=== PATIENT | male | born 1940 | race Hispanic/Latino ===

== ENCOUNTER 2016-09-19 17:45 | Emergency (ER) | payer MEDICARE, OTHER ==
[2016-09-19 18:04] VITALS: RESP 16; TEMP 99.1; BMI 32.4
--- NOTE | 2016-09-19 18:19 | ED PDOC ---
Arrival/HPI - General Chief Complaint: Male Genitourinary Time Seen by Provider: 09/19/16 17:49 Historian: Patient - History of Present Illness Narrative History of Present Illness (Text): 09/19/16 18:16 Patient is a 75 yo male with past medical hx of CAD presents to ED complaining of no drainage from his indewlling denny catheter for the past 10 hours. He reports some lower abdominal/suprapubic discomfort currently. States he has had indwelling catheter for the past "two and a half weeks". Denies fevers or chills. Denies back pain. Denies nausea or vomiting. Denies chest pain or shortness of breath. Time/Duration: Prior to Arrival Symptom Onset: Gradual Past Medical History - Infectious Disease Hx of Infectious Diseases: None - Cardiac Hx Cardiac Disorders: Yes (NSTEMI,ANGIOPLASTY POST CARD CATH WITH 2 STENTS ) Hx Hypertension: Yes Hx Pacemaker: No - Pulmonary Hx Respiratory Disorders: Yes (SMOKED 2 PPD QUIT 30 YRS AGO) - Neurological Hx Neurological Disorder: No - HEENT Hx HEENT Disorder: Yes Hx Glaucoma: Yes - Renal Hx Renal Disorder: No - Endocrine/Metabolic Hx Diabetes Mellitus Type 2: Yes - Hematological/Oncological Hx Blood Disorders: No - Integumentary Hx Dermatological Disorder: No - Musculoskeletal/Rheumatological Hx Musculoskeletal Disorders: Yes Hx Falls: No Hx Unsteady Gait: Yes (CANE WALKER) - Gastrointestinal Hx Gastrointestinal Disorders: Yes Hx Gall Bladder Disease: Yes (CHOLELITHIASIS-CHOLECYSTITIS -CHOLECYSTECTOMY WITH LYSIS OF ADHESIONS-[id number]) - Genitourinary/Gynecological Hx Genitourinary Disorders: Yes Hx Prostate Problems: Yes (BPH) - Psychiatric Hx Emotional Abuse: No Hx Physical Abuse: No Hx Substance Use: No - Surgical History Hx Cholecystectomy: Yes (OPEN WITH LYSIS OF ADHESIONS) Other/Comment: CARDIAC CATH WITH 2 STENTS,INGUINAL HERNIA REPAIR - Anesthesia Hx Anesthesia: Yes Hx Anesthesia Reactions: No Hx Malignant Hyperthermia: No - Suicidal Assessment Feels Threatened In Home Enviroment: No Family/Social History Family/Social History: Unknown Family HX Smoking Status: Former Smoker Hx Alcohol Use: Yes (QUIT 30 YRS AGO) Hx Substance Use: No Allergies/Home Meds Allergies/Adverse Reactions: Allergies IV TAPE Allergy (Intermediate, Uncoded 07/27/16 16:59) RASH Home Medications: Home Meds Medication Instructions Recorded Confirmed Timolol 0.5% Ophth [Timoptic 0.5% 1 drop EACHEYE DAILY 04/17/12 09/19/16 Ophth Soln] Alprazolam [Xanax] 0.25 mg PO PRN PRN 07/23/16 09/19/16 Glimepiride 4 mg PO DAILY 07/23/16 09/19/16 Insulin Lispro Mix 75/25 [HumaLOG 20 units SC ACBD 07/23/16 09/19/16 Mix 75/25] Tamsulosin [Flomax] 0.4 mg PO DAILY 07/23/16 09/19/16 Cholecalciferol (Vitamin D3) 2,000 unit PO DAILY 09/19/16 09/19/16 [Vitamin D3] Review of Systems - Review of Systems Constitutional: absent: Fevers Respiratory: absent: SOB Cardiovascular: absent: Chest Pain Gastrointestinal: Abdominal Pain. absent: Diarrhea, Nausea, Vomiting, Appetite Changes, Hematochezia Genitourinary Male: Urinary Output Changes. absent: Dysuria, Frequency, Hematuria Musculoskeletal: absent: Back Pain, Neck Pain Skin: absent: Rash Neurological: absent: Headache, Dizziness, Focal Weakness Physical Exam Vital Signs Reviewed: Yes Vital Signs Temp Pulse Resp BP Pulse Ox 09/19/16 18:03 99.1 F 94 H 16 147/69 95 Temperature: Afebrile Appearance: Positive for: Uncomfortable Pain Distress: Mild - Systems Exam Head: Present: Atraumatic Mouth: Present: Moist Mucous Membranes Neck: Present: Normal Range of Motion Respiratory/Chest: No: Respiratory Distress Cardiovascular: Present: Regular Rate and Rhythm Abdomen: Present: Tenderness, Distention. No: Peritoneal Signs Genitourinary Male: No: Penile Discharge, Testicle Tenderness Neurological: Present: Motor Func Grossly Intact, Normal Sensory Function Skin: Present: Warm Psychiatric: Present: Alert Medical Decision Making ED Course and Treatment: 09/19/16 20:09 Patient denies chest pain or shortness of breath. States no drainage and reports very MILD lower abdominal pressure. Denies flank pain or fevers or chills. Denny catheter changed without difficulty, one liter of cloudy urine observed. Patient observed in ED for 2 hours no hypotension, no chest pain or sob. Re-exam , no abdominal distension or discomfort. Patient will be placed on leg denny bag, NO TAPE. I discussed case with Dr. Mirian Puente who will follow-up with patient. Patient with recent urine culture in July which was positive. This was reviewed with Dr. Puente he was reportedly treated with antibiotics at that time. Given cloudy appearance of current urine, will discharge with antibiotics. - Lab Interpretations Lab Results: 09/19/16 18:35 09/19/16 18:35 Lab Results 09/19/16 18:35: WBC 6.7, RBC 3.86, Hgb 11.2 L, Hct 34.5 L, MCV 89.4, MCH 29.0, MCHC 32.5, RDW 14.0, Plt Count 185, MPV 10.6, Gran % 66.8, Lymph % (Auto) 20.6 L , [place] % (Auto) 7.9 H, Eos % (Auto) 4.3, Baso % (Auto) 0.4, Gran # 4.46, Lymph # 1.4, [place] # 0.5, Eos # 0.3, Baso # 0.03, Sodium 141, Potassium 4.0, Chloride 106, Carbon Dioxide 25, Anion Gap 14, BUN 19, Creatinine 1.2, Est GFR ( Amer) > 60, Est GFR (Non-Af Amer) 59, Random Glucose 145 H, Calcium 9.1, Total Bilirubin 0.5, AST 22, ALT 31, Alkaline Phosphatase 63, Total Protein 7.2, Albumin 3.7, Globulin 3.5, Albumin/Globulin Ratio 1.1, Urine Color Yellow, Urine Appearance Turbid, Urine pH 7.5, Ur Specific [place] 1.025, Urine Protein >=300 H, Urine Glucose (UA) Negative, Urine Ketones Negative, Urine Blood Moderate H, Urine Nitrate Positive H, Urine Bilirubin Negative, Urine Urobilinogen 0.2, Ur Leukocyte Esterase Moderate H, Urine RBC 2 - 5, Urine WBC Tntc, Ur Epithelial Cells 0 - 2, Urine Bacteria Many Disposition/Present on Arrival - Present on Arrival Any Indicators Present on Arrival: Yes History of DVT/PE: No History of Uncontrolled Diabetes: No Urinary Catheter: Yes History of Decub. Ulcer: No History Surgical Site Infection Following: None - Disposition Have Diagnosis and Disposition been Completed?: Yes Diagnosis: Urinary retention Disposition: HOME/ ROUTINE Disposition Time: 19:30 Patient Plan: Discharge Patient Problems: Current Active Problems Problem Status Diagnosed Acute cholecystitis Acute NSTEMI (non-ST elevated myocardial infarction) Acute Abdominal pain Acute Cholelithiasis Acute Condition: GOOD Discharge Instructions (ExitCare): Urinary Retention in Men (ED), Urinary Tract Infection in Men (ED) Additional Instructions: Follow-up with Dr. Puente as directed. Take antibiotics as directed. For any abdominal pain, any lack of urine flow, any back pain, any chills or shaking, any fevers, any nausea or vomiting, any chest pain or shortness of breath, get rechecked. Prescriptions: Cephalexin [cephalexin] 500 mg PO BID #14 cap
[2016-09-19 18:46] LABS: ADD MANUAL DIFF? NO
[2016-09-19 18:50] LABS: BASO # 0.03 K/mm3 (0.0-2.0); BASO % 0.4 % (0.0-3.0); EOS # 0.3 (0.0-0.7); EOS % 4.3 % (1.5-5.0); GRAN # 4.46 (1.4-6.5); GRAN % 66.8 % (50.0-68.0); HEMATOCRIT 34.5 % (42.0-52.0); LYMPH # 1.4 (1.2-3.4); LYMPH % 20.6 % (22.0-35.0); MEAN CELL VOLUME 89.4 fL (80.0-105.0); MEAN CORPUSCULAR HGB CONC 32.5 g/dl (31.0-37.0); MEAN PLATELET VOLUME 10.6 fl (7.0-11.0); MONO # 0.5 (0.1-0.6); MONO % 7.9 % (1.0-6.0); PLATELET COUNT 185 10^3/uL (120.0-450.0); WHITE BLOOD COUNT 6.7 10^3/ul (4.5-11.0)
[2016-09-19 18:51] LABS: PH,URINE 7.5 (4.7-8.0); URINE BILIRUBIN NEGATIVE (NEGATIVE); URINE BLOOD MODERATE (NEGATIVE); URINE GLUCOSE (UA) NEGATIVE (NEGATIVE); URINE KETONE NEGATIVE (NEGATIVE); URINE LEUKOCYTE ESTERASE MODERATE Leu/uL (NEGATIVE); URINE PROTEIN >=300 mg/dL (<30 mg/dL); URINE UROBILINOGEN 0.2 E.U./dL (<1 E.U./dL)
[2016-09-19 18:54] LABS: URINE APPEARANCE TURBID (CLEAR); URINE COLOR YELLOW (YELLOW)
[2016-09-19 19:03] LABS: ALB/GLOB RATIO 1.1 (1.1-1.8); ALKALINE PHOSPHATASE 63 U/L (38-133); ALT/SGPT 31 U/L (7-56); AST/SGOT 22 U/L (15-59); BILIRUBIN,TOTAL 0.5 mg/dL (0.2-1.3); BLOOD UREA NITROGEN 19 mg/dL (7-21); CALCIUM 9.1 mg/dL (8.4-10.5); CARBON DIOXIDE 25 mmol/L (21-33); CHLORIDE 106 mmol/L (98-107); GFR AFRICAN-AMERICAN > 60; GLUCOSE,RANDOM 145 mg/dL (70-110); SODIUM 141 mmol/L (132-148); TOTAL PROTEIN 7.2 g/dL (5.8-8.3)
[2016-09-19 19:06] LABS: URINE BACTERIA MANY (NEG); URINE EPITHELIAL CELLS 0 - 2 /hpf (0-5); URINE WBC TNTC /hpf (0-6)
[2016-09-19 20:44] VITALS: BP 139/76; PULSE 89; O2SAT 98
== END 2016-09-19 20:43 | disposition home or self-care (01) ==
LOC: ED 17:45
DX: R33.9 Retention of urine, unspecified (principal)

== ENCOUNTER 2016-11-18 12:10 | Day surgery (SDC) | payer MEDICARE ==
[2016-11-17 11:35] VITALS: BMI 35.4
[2016-11-18 13:20] VITALS: TEMP 97.5
[2016-11-18] MEDS ORDERED: Lidocaine 1% Inj (20ml) ONE (14:46)
[2016-11-18] MEDS ORDERED: Midazolam 2 MG/2 ML VIAL ONE (14:50)
[2016-11-18] MEDS ORDERED: Lidocaine 2% Inj (20ml) ONE (14:50)
[2016-11-18] MEDS ORDERED: Propofol 10 mg/ml Inj (20 ML) ONE (14:50)
[2016-11-18] MEDS ORDERED: Bupivacaine 0.5% Inj(30mL) ONE (15:22)
[2016-11-18] MEDS ORDERED: Iohexol 240 (50 ml) ONE ×2 (15:22→15:43)
[2016-11-18] MEDS ORDERED: Lidocaine 2% Jelly (Uro-Jet) ONE (15:25)
[2016-11-18] MEDS ORDERED: Ciprofloxacin 400mg/200ml D5W 400 MG/200 ML BAG IVPB ONE (15:28)
[2016-11-18] MEDS ORDERED: Lactated Ringer's 1,000 ML IV SCH (16:06)
[2016-11-18] MEDS ORDERED: HYDROmorphone 0.5 mg/0.5 ml ISec IVP PRN (16:06)
[2016-11-18 16:25] VITALS: O2SAT 97
[2016-11-18 16:54] VITALS: BP 129/76; PULSE 65; RESP 18
--- NOTE | 2016-11-18 23:38 | CARD ---
APPROVED REPORT EKG Measurement Heart [id number] MA [id number] <Conclusion> Sinus rhythm with 1st degree AV block Otherwise normal ECG
--- NOTE | 2016-11-20 13:43 | RAD ---
PROCEDURE: Fluoroscopy up to 1 hour HISTORY: CYSTOTOMY / WITH CYSTOGRAM (SUPRAPUBIC INSERTION) COMPARISON: TECHNIQUE: Fluoroscopy was provided in the operating room. 33 seconds of fluoroscopy time were utilized. Thirteen images were submitted FINDINGS: There is opacification of the bladder for purposes of suprapubic insertion. Procedure was performed by Dr. Jet Puente. IMPRESSION: As above
== END 2016-11-18 18:56 | disposition home or self-care (01) ==
LOC: SDS 12:10
PROVIDERS: ATTEND Urology
DX: N40.1 Benign prostatic hyperplasia with lower urinary tract symptoms (principal); R33.8 Other retention of urine; I10 Essential (primary) hypertension; E11.9 Type 2 diabetes mellitus without complications
CPT/HCPCS: 51102; 51600; 76000; 93005; J0744; J1170; J2250; J2704; J3010; J7120 ×2; Q9966

== ENCOUNTER 2016-12-22 06:16 | Day surgery (SDC) | payer MEDICARE ==
[2016-12-17 10:53] VITALS: BMI 32.8
[2016-12-22] MEDS ORDERED: Bupivacaine 0.5% Inj(30mL) ONE (07:33)
[2016-12-22] MEDS ORDERED: Midazolam 2 MG/2 ML VIAL ONE ×2 (08:45→08:57)
[2016-12-22] MEDS ORDERED: Iohexol 240 (50 ml) ONE (08:47)
[2016-12-22] MEDS ORDERED: Propofol 10 mg/ml Inj (20 ML) ONE (08:59)
[2016-12-22] MEDS ORDERED: cefTRIAXone (Rocephin) 1 gm Inj ONE (08:59)
[2016-12-22] MEDS ORDERED: Gentamicin 160 MG in Sodium Chloride 0.9% 100 ML IVPB STA (09:40)
[2016-12-22] MEDS ORDERED: Lactated Ringer's 1,000 ML IV SCH (09:46)
[2016-12-22] MEDS ORDERED: Gentamicin 80mg/50ml NS 160 MG/100 ML BAG IVPB ONE (09:54)
[2016-12-22] MEDS ORDERED: Gentamicin IV 80mg/50ml NS(PREMIX) IVPB ONE (10:00)
[2016-12-22 10:30] VITALS: O2SAT 98
[2016-12-22 10:51] VITALS: RESP 20; TEMP 97.4
[2016-12-22 11:40] VITALS: BP 150/72; PULSE 65
--- NOTE | 2016-12-22 14:50 | HP ---
DATE: 12/22/2016 REASON FOR ADMISSION: Insertion of cystostomy tube. HISTORY OF PRESENT ILLNESS: This is very pleasant 76-year-old gentleman who has recurrent episodes of urinary retention and voiding dysfunction. He reports that this all dates back to his gallbladder, but really historically has had longer history where he has had difficulty voiding and urinary retention, but he was sort of in usual state of health till he ran into this problem. Since then, we have tried multiple things and today he is coming in for a cystostomy tube insertion. PAST MEDICAL AND SURGICAL HISTORY: No history of an [place]. The patient of Dr. Arenas. REVIEW OF SYSTEMS: Listed above. Noncontributory. No weight loss or chest pain otherwise. SOCIAL HISTORY: Comes to the office mostly by himself and his daughter is around, but he mostly caring for himself at this point. MEDICATIONS: See chart. PHYSICAL EXAMINATION: GENERAL: A well-nourished male, in no apparent distress. VITAL SIGNS: Within normal limits as listed on the chart. ABDOMEN: Soft, nontender. GENITOURINARY: Cystostomy tube old site has healed well. Ricketts catheter is in place. DIAGNOSES: Urinary retention and voiding dysfunction. A very pleasant gentleman who we discussed options. At this point, the patient is very pleasant, but somewhat confused, so I explained to him what we are doing. I explained it at length before today, the idea of trying to doing another cystostomy tube. I explained the patient, we just leave the Ricketts catheter in that is also medically acceptable, but he is not happy with catheter in place. PLAN: The plan for urology is as follows. We are going to plan for a cystostomy tube insertion. we will do it under fluoroscopic imaging. I do want to mention in reviewing the notes, it was somewhat difficult because of his body habitus and again I explained the patient this is concerning to me, but we are going do our best. Jet Puente MD
--- NOTE | 2016-12-22 23:54 | OP ---
PROCEDURE DATE: 12/22/2016 PREOPERATIVE DIAGNOSES: Urinary retention, voiding dysfunction, hematuria, recurrent infection. POSTOPERATIVE DIAGNOSES: Urinary retention, voiding dysfunction, hematuria, recurrent infection. PROCEDURE: Insertion of a cystostomy tube, cystogram, insertion of Ricketts catheter. SURGEON: Jet Puente MD ESTIMATED BLOOD LOSS: Less than 20 mL. COMPLICATIONS: There were no complications, but we were unable to actually insert the catheter to leave it indwelling. See the operative report for further details. We did insert a cystostomy tube, but I did not feel that it was in place and draining well, so I subsequently removed it. See the entire body of the report for the procedure of insertion of the cystostomy tube and actually also insertion and removal, and there were no complications, just we were not able to get in. INDICATIONS: Brief history and physical were reviewed. Very pleasant gentleman with recurrent episodes of retention. He is not happy with the catheter. He is not able to void. He is not able to do intermittent catheterization. Therefore, it was somewhat limited, and I think cystostomy tubes are good answer and I think this is a reasonably good answer; however, not withstanding today's procedure, we were unable to get a catheter to stay in. See the addendum at the end because I just want to mention now, I did discuss with the patient about the possibility of insertion of an open cutdown cystostomy tube. DESCRIPTION OF PROCEDURE: After obtaining informed consent, the patient was brought to the OR and placed on the table. Routine monitor was placed, time-out was called, we kept the patient sedation. We provided local lidocaine. We brought the fluoro machine in. We distended the bladder through the indwelling Ricketts catheter. Now we used a finder needle. We used lidocaine jelly. I actually had my medication assistant pulling upon the patient on his pannus to try to distend the area, where I will be able to see his abdomen better. We went 2 cm above the pubic bone, but it was really difficult to feel the pubic bone because of his body habitus. However, I am pretty sure, I did feel it well enough to make use of skin marker very carefully. Remaining incision, we used Marcaine and made a little incision. I used a finder needle, went through that incision, a spinal needle and we got clear yellow urine. I now used a cystotomy tube and I just did not get any urine out. So now, I adjusted it under fluoroscopic imaging with both PA and lateral views to make sure that I am in properly. I used a needle from the spinal needle to make sure that I am at the right spot. I distended the bladder, I injected the contrast, so I am positive where the bladder is with the contrast injected. I even thought of the penis with little to keep the fluid inside without draining and leaking. I would have distended the bladder even more, but it started leaking back through the catheter. So once we did this, we did it. After the incision of the cystotomy tube, I put the Ricketts catheter through the plastic tubing and tried adjusting the tubing, may be taking out through the back wall of the bladder and pulling it back and using the films, and I took multiple images, saved some, but even afterwards when I am positive, positive that I am in, there is nothing draining and I know it is full because I could see it on the imaging and as soon as I left the Ricketts, unclamped the Ricketts catheter via the penis, the urine comes out easily and the bladder deflates, but I either way was not able to get an adequate return despite adjusting the catheter in its position, etc. So, after multiple times, I do not want to do anything further dangerous. So, the procedure is aborted. We inserted the Ricketts catheter via the urethra. I put actually [place], just in case if there is any perforation to the bladder. Again, just to make sure the bladder will heal well, but I am fairly sure that the bladder is not extravasated all over. I did a cystogram to confirm all this. There are some final pictures that are saved. The patient tolerated the procedure without complication, but I cannot get a cystostomy tube in well. The patient was brought to the recovery room in stable condition. ADDENDUM: I spoke to the patient about options about repeat cystostomy tube or about open cystostomy tube. Further plans will follow. Jet Puente MD
--- NOTE | 2016-12-23 09:55 | PN ---
POSTOP NOTE Postop, patient is doing well in recovery room, catheter is draining. Patient is feeling better. Plans are for discharge home. DIAGNOSIS: Urinary retention and voiding dysfunction. PLAN: Outpatient followup. discuss with you about the cystostomy tube. Jet Puente MD
== END 2016-12-22 12:40 | disposition home or self-care (01) ==
LOC: SDS 06:16
PROVIDERS: ATTEND Urology
DX: R33.9 Retention of urine, unspecified (principal); R39.198 Other difficulties with micturition; N02.9 Recurrent and persistent hematuria with unspecified morphologic changes
CPT/HCPCS: 51702; 74430; A4358; J0696; J1580 ×2; J2250; J2704; J3010; J7120 ×2; Q9966

== ENCOUNTER 2017-03-10 13:27 | Emergency (ER) | payer MEDICARE ==
[2017-03-10 13:27] VITALS: BMI 32.8
--- NOTE | 2017-03-10 14:43 | ED PDOC ---
Arrival/HPI - General Time Seen by Provider: 03/10/17 14:23 Historian: Patient - History of Present Illness Narrative History of Present Illness (Text): 03/10/17 14:31 A 76 year old male, whose past medical history includes CAD, hypertension, hyperlipidemia, diabetes type 2, and prostate problem, presents to the emergency department complaining of urine coming out through the sides of his denny. Patient reports he is having trouble urinating into bag and results in having urine go down his legs. He mentions having his denny catheter bag changed yesterday but is concerned that it was placed in wrong. Patient notes also experiencing dysuria, hematuria (1 hour ago), and some diarrhea, but denies of any fever, nausea, vomiting, abdominal pain, or any other complaints. PMD: Dr. Arenas Urologist: Dr. Puente Past Medical History - Provider Review Nursing Documentation Reviewed: Yes - Infectious Disease Hx of Infectious Diseases: None - Cardiac Hx Pacemaker: No - Pulmonary Hx Respiratory Disorders: Yes (SMOKED 2 PPD QUIT 30 YRS AGO) - Neurological Hx Paralysis: No - HEENT Hx HEENT Disorder: Yes Hx Glaucoma: Yes - Renal Hx Renal Disorder: No - Endocrine/Metabolic Hx Diabetes Mellitus Type 2: Yes - Hematological/Oncological Hx Blood Transfusions: No Hx Blood Transfusion Reaction: No - Integumentary Hx Dermatological Disorder: No - Musculoskeletal/Rheumatological Hx Musculoskeletal Disorders: Yes - Gastrointestinal Hx Gastrointestinal Disorders: Yes Hx Gall Bladder Disease: Yes (CHOLELITHIASIS-CHOLECYSTITIS -CHOLECYSTECTOMY WITH LYSIS OF [id number]) - Genitourinary/Gynecological Hx Genitourinary Disorders: Yes Hx Prostate Problems: Yes (BPH) - Psychiatric Hx Emotional Abuse: No Hx Physical Abuse: No Hx Substance Use: No - Surgical History Hx Cholecystectomy: Yes (OPEN WITH LYSIS OF ADHESIONS) Other/Comment: CARDIAC CATH WITH 2 STENTS,INGUINAL HERNIA REPAIR - Anesthesia Hx Anesthesia Reactions: No Hx Malignant Hyperthermia: No - Suicidal Assessment Feels Threatened In Home Enviroment: No Family/Social History - Physician Review Nursing Documentation Reviewed: Yes Family/Social History: No Known Family HX Smoking Status: Former Smoker Hx Alcohol Use: Yes (QUIT 30 YRS AGO) Hx Substance Use: No Allergies/Home Meds Allergies/Adverse Reactions: Allergies amoxicillin Allergy (Severe, Verified 11/17/16 11:36) RASH IV TAPE Allergy (Intermediate, Uncoded 07/27/16 16:59) RASH Home Medications: Home Meds Medication Instructions Recorded Confirmed Alprazolam [Xanax] 0.25 mg PO TID 07/23/16 03/10/17 Glimepiride 4 mg PO BID 07/23/16 03/10/17 Insulin Lispro Mix 75/25 [HumaLOG 20 units SC BID 07/23/16 03/10/17 Mix 75/25] Tamsulosin [Flomax] 0.4 mg PO DAILY 07/23/16 03/10/17 Cholecalciferol (Vitamin D3) 2,000 unit PO DAILY 09/19/16 03/10/17 [Vitamin D3] Review of Systems - Physician Review All systems were reviewed & negative as marked: Yes - Review of Systems Constitutional: absent: Fevers Gastrointestinal: Diarrhea (some diarrhea ). absent: Abdominal Pain, Nausea, Vomiting Genitourinary Male: Dysuria, Hematuria. absent: Frequency Physical Exam Vital Signs Reviewed: Yes Vital Signs Temp Pulse Resp BP Pulse Ox 03/10/17 16:00 72 16 149/90 98 03/10/17 13:40 97.3 F L 73 13 152/59 H 98 Temperature: Afebrile Blood Pressure: Normal Pulse: Regular Respiratory Rate: Normal Appearance: Positive for: Well-Appearing, Non-Toxic, Comfortable Pain Distress: None Mental Status: Positive for: Alert and Oriented X 3 - Systems Exam Head: Present: Atraumatic Pupils: Present: PERRL Extroacular Muscles: Present: EOMI Conjunctiva: Present: Normal Mouth: Present: Moist Mucous Membranes Respiratory/Chest: Present: Clear to Auscultation, Good Air Exchange. No: Respiratory Distress, Accessory Muscle Use Cardiovascular: Present: Regular Rate and Rhythm, Normal S1, S2. No: Murmurs Abdomen: No: Tenderness Genitourinary Male: Present: Normal External Genitalia. No: Penile Discharge, Testicle Tenderness, Penile Swelling, Masses, Erythema, Hernias, Testicle Swelling, Other (no bleeding from penis; denny bag has yellow urine with tinge of blood) Back: Present: Normal Inspection. No: CVA Tenderness Upper Extremity: Present: Normal Inspection. No: Cyanosis, Edema Lower Extremity: Present: Normal Inspection. No: Edema Neurological: Present: GCS=15, CN II-XII Intact, Speech Normal Skin: Present: Warm, Dry, Normal Color. No: Rashes Psychiatric: Present: Alert, Oriented x 3, Normal Insight, Normal Concentration Medical Decision Making ED Course and Treatment: 03/10/17 14:35 Impression: 76 year old male with loose stool. Physical exam shows no abdominal tenderness; no penile tenderness, no active bleeding, Differential Diagnosis included but are not limited to: Denny bag replacement Plan: -- UA -- Reassess and disposition Prior Visits: Notes and results from previous visits were reviewed. Patient was last seen here in the emergency department on 09/19/2016 for no drainage from his indwelling denny catheter. Patient was discharged home. Progress Notes: Patient's UA showed a UTI and will be treated with Cipro x 7 days. Patient also reported a piece of tissue that came out of his penis. He things maybe it was from his right inguinal hernia repair that the did years ago. He has no tenderness to that area or any open wounds. He will follow this up with his PMD and Urologist Dr. Puente. Dr. Puente called prior to arrival and stated to change his denny and if it is properly placed then he can follow up with him in his office. - Lab Interpretations Lab Results: Lab Results 03/10/17 15:00: Urine Color Yellow, Urine Appearance Cloudy, Urine pH 6.0, Ur Specific [place] >= 1.030, Urine Protein 100 H, Urine Glucose (UA) Negative, Urine Ketones Negative, Urine Blood Large H, Urine Nitrate Positive H, Urine Bilirubin Negative, Urine Urobilinogen 0.2, Ur Leukocyte Esterase Moderate H, Urine RBC 20 - 25, Urine WBC Tntc, Ur Epithelial Cells 3 - 4, Urine Bacteria Large - Medication Orders Current Medication Orders: Discontinued Medications Ciprofloxacin (Cipro) 500 mg PO ONCE STA PRN Reason: Protocol Stop: 03/10/17 15:44 Last Admin: 03/10/17 16:02 Dose: 500 mg - Scribe Statement The provider has reviewed the documentation as recorded by the Francoise Lux Provider Scribe Attestation: All medical record entries made by the Scribe were at my direction and personally dictated by me. I have reviewed the chart and agree that the record accurately reflects my personal performance of the history, physical exam, medical decision making, and the department course for this patient. I have also personally directed, reviewed, and agree with the discharge instructions and disposition. Disposition/Present on Arrival - Present on Arrival Any Indicators Present on Arrival: Yes History of DVT/PE: No History of Uncontrolled Diabetes: No Urinary Catheter: Yes History Surgical Site Infection Following: None - Disposition Have Diagnosis and Disposition been Completed?: Yes Diagnosis: UTI (urinary tract infection) Disposition: HOME/ ROUTINE Disposition Time: 16:15 Patient Plan: Discharge Condition: IMPROVED Discharge Instructions (ExitCare): Urinary Tract Infection in Men (ED) Additional Instructions: Mr. Younger, thank you for letting us take care of you today. Your provider was Dr. Winter. You were treated for UTI, Denny replacement. The emergency medical care you received today was directed at your acute symptoms. If you were prescribed any medication, please fill it and take as directed. It may take several days for your symptoms to resolve. Return to the Emergency Department if your symptoms worsen, do not improve, or if you have any other problems. Please contact your doctor or call one of the physicians/clinics you have been referred to that are listed on the Patient Visit Information form that is included in your discharge packet. Bring any paperwork you were given at discharge with you along with any medications you are taking to your follow up visit. Our treatment cannot replace ongoing medical care by a primary care provider (PCP) outside of the emergency department. Thank you for allowing the [facility] team to be part of your care today. If you had an X-Ray or CT scan: A Radiologist will review the ED reading if any change in treatment is needed we will contact you. If you had a blood, urine, or wound culture: It will take several days for the results, if any change in treatment is needed we will contact you. If you had an STI test: It will take 48 hours for the results. Please call after 1 week if you have not heard back. Prescriptions: Ciprofloxacin [Cipro] 500 mg PO Q12 #14 tab Referrals: Dustin Arenas MD [Primary Care Provider] - Follow up with primary Forms: CatchMe! (Sami)
[2017-03-10 14:46] VITALS: TEMP 97.3; O2SAT 98
[2017-03-10 15:26] LABS: URINE BILIRUBIN NEGATIVE (NEGATIVE); URINE BLOOD LARGE (NEGATIVE); URINE GLUCOSE (UA) NEGATIVE (NEGATIVE); URINE KETONE NEGATIVE (NEGATIVE); URINE LEUKOCYTE ESTERASE MODERATE Leu/uL (NEGATIVE); URINE PROTEIN 100 mg/dL (<30 mg/dL); URINE UROBILINOGEN 0.2 E.U./dL (<1 E.U./dL)
[2017-03-10 15:30] LABS: URINE APPEARANCE CLOUDY (CLEAR); URINE COLOR YELLOW (YELLOW)
[2017-03-10] MEDS ORDERED: Tmp-Smz 800 mg-160 mg DS Tab PO STA (15:40)
[2017-03-10 15:42] LABS: URINE RBC 20 - 25 /hpf (0-2); URINE WBC TNTC /hpf (0-6)
[2017-03-10 15:43] LABS: URINE BACTERIA LARGE (NEG)
[2017-03-10 16:14] VITALS: BP 149/90; PULSE 72; RESP 16
== END 2017-03-10 16:15 | disposition home or self-care (01) ==
LOC: ED 13:27
DX: N39.0 Urinary tract infection, site not specified (principal); I10 Essential (primary) hypertension; E11.9 Type 2 diabetes mellitus without complications; E78.5 Hyperlipidemia, unspecified; I25.10 Atherosclerotic heart disease of native coronary artery without angina pectoris; Z87.891 Personal history of nicotine dependence

== ENCOUNTER 2018-01-25 06:30 | Emergency (ER) | payer MEDICARE ==
[2018-01-25 06:31] VITALS: BMI 32.8
--- NOTE | 2018-01-25 07:33 | ED PDOC ---
Arrival/HPI - General Chief Complaint: Male Genitourinary Time Seen by Provider: 01/25/18 07:09 Historian: Patient, Family - History of Present Illness Narrative History of Present Illness (Text): 01/25/18 07:18 A 77 year old male, whose past medical history includes HTN, HLD, previous denny cath and cholecysectomy (few months ago), presents to the emergency department complaining of pain to tip of penis. Patient reports having denny catheter removed by Dr. Dudley yesterday. After removal, patient states he had difficulty urinated and patient decided to place back denny catheter back in himself approximately 2 hours ago, however as a result began to experience hematuria and pain at the tip of his penis. Patient denies any rash to penis, dysuria, stool changes, fever, chills, night sweats or any other complaints at this time. Denies any history of STDs or sexual activity in years. Urologist: Dr. Dudley 01/25/18 10:00 Past Medical History - Provider Review Nursing Documentation Reviewed: Yes - Infectious Disease Hx of Infectious Diseases: None - Cardiac Hx Pacemaker: No - Pulmonary Hx Respiratory Disorders: Yes (SMOKED 2 PPD QUIT 30 YRS AGO) - Neurological Hx Paralysis: No - HEENT Hx HEENT Disorder: Yes Hx Glaucoma: Yes - Renal Hx Renal Disorder: No - Endocrine/Metabolic Hx Endocrine Disorders: Yes Hx Diabetes Mellitus Type 2: Yes - Hematological/Oncological Hx Blood Transfusions: No Hx Blood Transfusion Reaction: No - Integumentary Hx Dermatological Disorder: No - Musculoskeletal/Rheumatological Hx Musculoskeletal Disorders: Yes - Gastrointestinal Hx Gastrointestinal Disorders: Yes Hx Gall Bladder Disease: Yes (CHOLELITHIASIS-CHOLECYSTITIS -CHOLECYSTECTOMY WITH LYSIS OF [id number]) - Genitourinary/Gynecological Hx Genitourinary Disorders: Yes Hx Prostate Problems: Yes (BPH) Other/Comment: chronic denny - Psychiatric Hx Emotional Abuse: No Hx Physical Abuse: No Hx Substance Use: No - Surgical History Hx Cholecystectomy: Yes (OPEN WITH LYSIS OF ADHESIONS) Other/Comment: CARDIAC CATH WITH 2 STENTS,INGUINAL HERNIA REPAIR - Anesthesia Hx Anesthesia Reactions: No Hx Malignant Hyperthermia: No - Suicidal Assessment Feels Threatened In Home Enviroment: No Family/Social History - Physician Review Nursing Documentation Reviewed: Yes Family/Social History: No Known Family HX Smoking Status: Former Smoker Hx Alcohol Use: Yes (QUIT 30 YRS AGO) Hx Substance Use: No Allergies/Home Meds Allergies/Adverse Reactions: Allergies amoxicillin Allergy (Severe, Verified 11/17/16 11:36) RASH IV TAPE Allergy (Intermediate, Uncoded 07/27/16 16:59) RASH Home Medications: Home Meds Medication Instructions Recorded Confirmed Finasteride [Proscar] 5 mg PO DAILY 01/25/18 01/25/18 Losartan [Cozaar] 50 mg PO DAILY 01/25/18 01/25/18 Meloxicam [Mobic] 7.5 mg PO DAILY 01/25/18 01/25/18 busPIRone [Buspar] 5 mg PO DAILY 01/25/18 01/25/18 Review of Systems - Review of Systems Constitutional: Normal Eyes: Normal ENT: Normal Respiratory: Normal Cardiovascular: Normal Gastrointestinal: absent: Abdominal Pain, Stool Changes Genitourinary Male: Other (states experiencing pain at tip of penis.). absent: Dysuria Musculoskeletal: Normal Skin: absent: Rash Endocrine: Polyuria Hemo/Lymphatic: Normal Psychiatric: Normal Physical Exam Vital Signs Reviewed: Yes Vital Signs Temp Pulse Resp BP Pulse Ox 01/25/18 06:39 97.6 F 81 18 156/95 H 96 Temperature: Afebrile Blood Pressure: Normal Pulse: Regular Respiratory Rate: Normal Appearance: Positive for: Well-Appearing, Non-Toxic, Comfortable Pain Distress: None Mental Status: Positive for: Alert and Oriented X 3 - Systems Exam Head: Present: Atraumatic, Normocephalic Pupils: Present: PERRL Extroacular Muscles: Present: EOMI Conjunctiva: Present: Normal Mouth: Present: Moist Mucous Membranes Neck: Present: Normal Range of Motion Respiratory/Chest: Present: Clear to Auscultation, Good Air Exchange. No: Respiratory Distress, Accessory Muscle Use Cardiovascular: Present: Regular Rate and Rhythm, Normal S1, S2. No: Murmurs Abdomen: No: Tenderness, Distention, Peritoneal Signs Genitourinary Male: Present: Normal External Genitalia. No: Circumcised Penis, Lesions, Penile Discharge, Testicle Tenderness, Penile Swelling, Masses, Erythema, Hernias, Testicle Swelling Back: Present: Normal Inspection. No: CVA Tenderness Upper Extremity: Present: Normal Inspection. No: Cyanosis, Edema Lower Extremity: Present: Normal Inspection. No: Edema Neurological: Present: GCS=15, CN II-XII Intact, Speech Normal Skin: Present: Warm, Dry, Normal Color. No: Rashes Psychiatric: Present: Alert, Oriented x 3, Normal Insight, Normal Concentration Medical Decision Making ED Course and Treatment: 01/25/18 07:20 Impression: 77 year old male with pain to tip of penis. No acute findings on physical exam; normal genitourinary examination. No hx of recent sex use, U/L sexually related. Pain likely secondary to attempted self denny insertion. Urine viewed by myself has no clots and is clear. Plan: -- Urinalysis -- Reassess and disposition Progress Notes: 01/25/18 07:43 Patient will have denny catheter placed since he states he is having difficulty urinating at this time. 01/25/18 09:52 Denny placed, draining jayjay urine well. Pt notes relief of pain Lab results show patient has a UTI. Will rx and d/c pt home. No back pain or fever. - Lab Interpretations Lab Results: Lab Results 01/25/18 07:37: Urine Color Yellow, Urine Appearance Clear, Urine pH 6.0, Ur Specific [place] 1.015, Urine Protein 30 H, Urine Glucose (UA) Negative, Urine Ketones Negative, Urine Blood Large H, Urine Nitrate Negative, Urine Bilirubin Negative, Urine Urobilinogen 0.2, Ur Leukocyte Esterase Large H, Urine RBC Tntc , Urine WBC Tntc, Ur Epithelial Cells 1 - 3, Amorphous Sediment Few, Urine Bacteria Many, Coarse Granular Casts Trace H, Urine Other Uyeast - Scribe Statement The provider has reviewed the documentation as recorded by the Francoise Lux Provider Scribe Attestation: All medical record entries made by the Fletcheribkan were at my direction and personally dictated by me. I have reviewed the chart and agree that the record accurately reflects my personal performance of the history, physical exam, medical decision making, and the department course for this patient. I have also personally directed, reviewed, and agree with the discharge instructions and disposition. Disposition/Present on Arrival - Present on Arrival Any Indicators Present on Arrival: No History of DVT/PE: No History of Uncontrolled Diabetes: No Urinary Catheter: Yes History of Decub. Ulcer: No History Surgical Site Infection Following: None - Disposition Have Diagnosis and Disposition been Completed?: Yes Diagnosis: UTI (urinary tract infection) Disposition: HOME/ ROUTINE Disposition Time: :30 Patient Problems: Current Active Problems Problem Status Onset UTI (urinary tract infection) Acute Condition: GOOD Discharge Instructions (ExitCare): Urinary Tract Infections in Adults, How to Care for Your Denny Catheter, Male Additional Instructions: JUDY ESPINO, thank you for letting us take care of you today. Your provider was Pilo Rajput and you were treated for medical clearance. The emergency medical care you received today was directed at your acute symptoms. If you were prescribed any medication, please fill it and take as directed. It may take several days for your symptoms to resolve. Return to the Emergency Department if your symptoms worsen, do not improve, or if you have any other problems. Please contact your doctor or call one of the physicians/clinics you have been referred to that are listed on the Patient Visit Information form that is included in your discharge packet. Bring any paperwork you were given at discharge with you along with any medications you are taking to your follow up visit. Our treatment cannot replace ongoing medical care by a primary care provider outside of the emergency department. Thank you for allowing the [facility] team to be part of your care today. If you had an X-Ray or CT scan: A Radiologist will review the ED reading if any change in treatment is needed we will contact you. If you had a blood, urine, or wound culture: It will take several days for the results, if any change in treatment is needed we will contact you. If you had an STI test: It will take 48 hours for the results. Please call after 1 week if you have not heard back. Prescriptions: Ciprofloxacin HCl [Cipro] 500 mg PO BID 10 Days #20 tablet Referrals: Dustin Underwood Jr., MD [Primary Care Provider] - Follow up with primary Wilfrido Dudley MD [Staff Provider] - Follow up with primary Forms: [employer] ([place])
[2018-01-25 08:53] LABS: URINE BILIRUBIN NEGATIVE (NEGATIVE); URINE BLOOD LARGE (NEGATIVE); URINE GLUCOSE (UA) NEGATIVE (NEGATIVE); URINE LEUKOCYTE ESTERASE LARGE Leu/uL (NEGATIVE); URINE PROTEIN 30 mg/dL (<30 mg/dL); URINE UROBILINOGEN 0.2 E.U./dL (<1 E.U./dL)
[2018-01-25 08:54] LABS: URINE APPEARANCE CLEAR (CLEAR); URINE COLOR YELLOW (YELLOW)
[2018-01-25 08:57] LABS: URINE AMORPHOUS SEDIMENT FEW; URINE BACTERIA MANY (NEG); URINE COARSE GRANULAR CAST TRACE /hpf (0-2); URINE RBC TNTC /hpf (0-2); URINE WBC TNTC /hpf (0-6)
[2018-01-25 10:08] VITALS: RESP 20
[2018-01-25 10:12] VITALS: BP 149/77; PULSE 73; TEMP 97.6; O2SAT 97
== END 2018-01-25 10:18 | disposition home or self-care (01) ==
LOC: ED 06:30
DX: N39.0 Urinary tract infection, site not specified (principal); I10 Essential (primary) hypertension; E78.5 Hyperlipidemia, unspecified; E11.9 Type 2 diabetes mellitus without complications; Z87.891 Personal history of nicotine dependence

== ENCOUNTER 2018-03-23 03:32 | Emergency (ER) | payer MEDICARE ==
[2018-03-23 03:32] VITALS: BMI 32.8
[2018-03-23 03:50] VITALS: RESP 18; TEMP 98.3
--- NOTE | 2018-03-23 04:10 | ED PDOC ---
Arrival/HPI - General Chief Complaint: Male Genitourinary Time Seen by Provider: 03/23/18 03:34 Historian: Patient - History of Present Illness Narrative History of Present Illness (Text): 03/23/18 04:06 Dex Younger is a 77 year old male, whose past medical history includes BPH, CAD, and hypertension, who presents to the Emergency department complaining of urinary retention. Patient states he has had a Denny catheter in place for approximately the last 1-2 months and had urinary retention tonight. Patient also reports burning sensation to the tip of his penis. Patient reports he has experienced similar symptoms in the past and was placed on antibiotics. Patient denies any fever, chills, chest pain, shortness of breath, nausea, vomiting, diarrhea, back pain, neck pain, headache, dizziness, or any other complaints. Symptom Onset: Gradual Symptom Course: Unchanged Activities at Onset: Light Context: Home Past Medical History - Provider Review Nursing Documentation Reviewed: Yes - Infectious Disease Hx of Infectious Diseases: None - Cardiac Hx Pacemaker: No - Pulmonary Hx Respiratory Disorders: Yes (SMOKED 2 PPD QUIT 30 YRS AGO) - Neurological Hx Paralysis: No - HEENT Hx HEENT Disorder: Yes Hx Glaucoma: Yes - Renal Hx Renal Disorder: No - Endocrine/Metabolic Hx Endocrine Disorders: Yes Hx Diabetes Mellitus Type 2: Yes - Hematological/Oncological Hx Blood Transfusions: No Hx Blood Transfusion Reaction: No - Integumentary Hx Dermatological Disorder: No - Musculoskeletal/Rheumatological Hx Musculoskeletal Disorders: Yes - Gastrointestinal Hx Gastrointestinal Disorders: Yes Hx Gall Bladder Disease: Yes (CHOLELITHIASIS-CHOLECYSTITIS -CHOLECYSTECTOMY WITH LYSIS OF [id number]) - Genitourinary/Gynecological Hx Genitourinary Disorders: Yes Hx Prostate Problems: Yes (BPH) Other/Comment: chronic denny - Psychiatric Hx Emotional Abuse: No Hx Physical Abuse: No Hx Substance Use: No - Surgical History Hx Cholecystectomy: Yes (OPEN WITH LYSIS OF ADHESIONS) Other/Comment: CARDIAC CATH WITH 2 STENTS,INGUINAL HERNIA REPAIR - Anesthesia Hx Anesthesia Reactions: No Hx Malignant Hyperthermia: No - Suicidal Assessment Feels Threatened In Home Enviroment: No Family/Social History - Physician Review Nursing Documentation Reviewed: Yes Family/Social History: Unknown Family HX Smoking Status: Former Smoker Hx Alcohol Use: Yes (QUIT 30 YRS AGO) Hx Substance Use: No Allergies/Home Meds Allergies/Adverse Reactions: Allergies amoxicillin Allergy (Severe, Verified 11/17/16 11:36) RASH IV TAPE Allergy (Intermediate, Uncoded 07/27/16 16:59) RASH Home Medications: Home Meds Medication Instructions Recorded Confirmed Finasteride [Proscar] 5 mg PO DAILY 01/25/18 03/23/18 Losartan [Cozaar] 50 mg PO DAILY 01/25/18 03/23/18 Meloxicam [Mobic] 7.5 mg PO DAILY 01/25/18 03/23/18 busPIRone [Buspar] 5 mg PO DAILY 01/25/18 03/23/18 Review of Systems - Physician Review All systems were reviewed & negative as marked: Yes - Review of Systems Constitutional: Normal. absent: Fevers Eyes: Normal ENT: Normal Respiratory: Normal. absent: SOB, Cough Cardiovascular: Normal Genitourinary Male: Other (+urinary retention) Musculoskeletal: Normal Skin: Normal Neurological: Normal Endocrine: Normal Hemo/Lymphatic: Normal Psychiatric: Normal Physical Exam Vital Signs Reviewed: Yes Vital Signs Temp Pulse Resp BP Pulse Ox 03/23/18 03:46 98.3 F 81 18 155/78 H 96 Temperature: Afebrile Blood Pressure: Normal Pulse: Regular Respiratory Rate: Normal Appearance: Positive for: Well-Appearing, Non-Toxic, Comfortable Pain Distress: None Mental Status: Positive for: Alert and Oriented X 3 - Systems Exam Head: Present: Atraumatic, Normocephalic Pupils: Present: PERRL Extroacular Muscles: Present: EOMI Conjunctiva: Present: Normal Mouth: Present: Moist Mucous Membranes Neck: Present: Normal Range of Motion Respiratory/Chest: Present: Clear to Auscultation, Good Air Exchange. No: Respiratory Distress, Accessory Muscle Use Cardiovascular: Present: Regular Rate and Rhythm, Normal S1, S2. No: Murmurs Abdomen: No: Tenderness, Distention, Peritoneal Signs Genitourinary Male: Present: Normal External Genitalia, Other (Denny catheter in place) Back: Present: Normal Inspection Upper Extremity: Present: Normal Inspection. No: Cyanosis, Edema Lower Extremity: Present: Normal Inspection. No: Edema Neurological: Present: GCS=15, CN II-XII Intact, Speech Normal Skin: Present: Warm, Dry, Normal Color. No: Rashes Psychiatric: Present: Alert, Oriented x 3, Normal Insight, Normal Concentration Medical Decision Making ED Course and Treatment: 03/23/18 04:06 Impression: 77 year old male complaining of urinary retention and burning to the tip of his penis. Plan: -- Denny catheter replacement -- Reassess and disposition Prior Visits: Notes and results from previous visits were reviewed. Progress Notes: PROCEDURE: Denny Catheter Replacement Performed by the emergency provider Consent: Informed consent, after discussion of the risks, benefits, and alternatives to the procedure was obtained. Timeout: A timeout to verify the correct patient, procedure, and site was performed. Indication: Urinary retention, denny malfunction Preparation: The area was prepped and draped in the usual sterile fashion. Technique: A 18 [place] coudette catheter was placed into the penis. Post-procedure: The patient tolerated the procedure well with no immediate complications 03/23/18 05:16 Denny draining blood-tinged urine. Pt is scheduled to see his urologist, Dr. Acuña, later today. Patient in agreement with plan to be discharged home. Patient is stable for discharge. Patient was instructed to follow up with physician or return if symptoms worsen or new concerning symptoms arise. - Scribe Statement The provider has reviewed the documentation as recorded by the Fletcheribkan Gastelum Provider Scribe Attestation: All medical record entries made by the Scribe were at my direction and personally dictated by me. I have reviewed the chart and agree that the record accurately reflects my personal performance of the history, physical exam, medical decision making, and the department course for this patient. I have also personally directed, reviewed, and agree with the discharge instructions and disposition. Disposition/Present on Arrival - Present on Arrival Any Indicators Present on Arrival: No History of DVT/PE: No History of Uncontrolled Diabetes: No Urinary Catheter: Yes History of Decub. Ulcer: No History Surgical Site Infection Following: None - Disposition Have Diagnosis and Disposition been Completed?: Yes Diagnosis: Urinary retention Disposition: HOME/ ROUTINE Disposition Time: 05:25 Condition: IMPROVED Discharge Instructions (ExitCare): Urinary Retention (DC) Additional Instructions: follow up with dr acuña Forms: [employer] ([place])
[2018-03-23 05:52] VITALS: BP 146/78; PULSE 72; O2SAT 100
== END 2018-03-23 05:52 | disposition home or self-care (01) ==
LOC: ED 03:32
DX: R33.9 Retention of urine, unspecified (principal)